=== PATIENT | male | born 1965 | race Two or more races ===

== ENCOUNTER 2024-07-17 16:42 | Emergency (ER) | payer OTHER ==
[~2024-07-17] VITALS: Ht 167.6 cm; Wt 90.7 kg
[2024-07-17] MEDS ORDERED: CHILDREN'S ASPI81 MG PO (17:12)
[2024-07-17] MEDS ORDERED: LIPITOR40 M1 PO (17:12)
[2024-07-17] MEDS ORDERED: TOPROL XL25 M1 PO (17:13)
[2024-07-17] MEDS ORDERED: KETOROLAC TROMETHAMINE 30 MG VIAL IM STA (17:33)
[2024-07-17] MEDS ORDERED: METOPROLOL SUCCINATE 25 MG TAB.SR.24H PO STA (17:34)
[2024-07-17] MEDS ORDERED: TRAM1TAB98 PO (19:10)
== END 2024-07-17 19:21 | disposition home or self-care (01) ==
LOC: ER 16:44
DX: S50.01XA Contusion of right elbow, initial encounter (principal); W18.39XA Other fall on same level, initial encounter; Y93.89 Activity, other specified; Y92.89 Other specified places as the place of occurrence of the external cause; S80.211A Abrasion, right knee, initial encounter; Z88.8 Allergy status to other drugs, medicaments and biological substances; S46.311A Strain of muscle, fascia and tendon of triceps, right arm, initial encounter